=== PATIENT | male | born 1995 | race Caucasian/White ===

== ENCOUNTER 2019-04-03 00:46 | Emergency (ER) | payer SELFPAY ==
[2019-04-03 01:07] LABS: Urine Appearance Clear; Urine Bilirubin Negative (Negative); Urine Blood Negative (Negative); Urine Color Yellow; Urine Glucose Negative (Negative); Urine Ketones 1+ (Negative); Urine Nitrite Negative (Negative); Urine Protein Negative (Negative); Urine Specific Gravity 1.027 (1.010-1.030); Urine Urobilinogen Negative (Negative)
[2019-04-03 01:28] LABS: INR 1.17 (0.82-1.09)
[2019-04-03 01:40] LABS: Albumin 4.6 g/dL (3.2-5.2); Albumin/Globulin Ratio 1.5 (1-3); BUN/Creatinine Ratio 19.6 (8-20); Calcium 10.1 mg/dL (8.6-10.3); EGFR African American 125.7 (>60); EGFR Non-African American 103.9 (>60); Potassium 3.5 mmol/L (3.5-5.0); Total Bilirubin 1.7 mg/dL (0.2-1.0); Total Protein 7.6 g/dL (6.4-8.9)
[2019-04-03 01:49] LABS: ABS Basophils 0.1 10^3/ul (0-0.2); ABS Monocytes 0.7 10^3/ul (0-0.8); ABS Neutrophils 9.5 10^3/ul (1.5-7.7); Eosinophil % 0.2 %; Hematocrit 47 % (42-52); Hemoglobin 17.4 g/dL (14.0-18.0); Lymphocyte % 8.5 %; Mean Corpuscular HGB Conc 37 g/dL (31-36); Mean Corpuscular Hemoglobin 32 pg (27-31); Mean Corpuscular Volume 85 fL (80-94); Mean Platelet Volume 7.6 fL (7.4-10.4); Nucleated Red Blood Cells % 0.2; Platelet Count 244 10^3/uL (150-450); Red Blood Count 5.48 10^6 /uL (4.18-5.48); Red Cell Distribution Width 13 % (10-15); White Blood Count 11.3 10^3/uL (3.5-10.8)
--- NOTE | 2019-04-03 02:08 | ED ---
GI/ HPI - HPI Summary HPI Summary: Patient is a 23 y/o M presenting to [facility] with complaints of lower abdominal pain. Pain has been present for the past few days and is noted to wrap around to his back bilaterally. Pain is characterized as a throbbing/sharp/aching pain. He states that the pain is not worse on one particular side. Pain worsened the evening of 04/02/19 while he was at work. Patient states that before leaving work he went to the bathroom, urinated, and passed stones. He states that he wants to make sure that he passed all possible stones. Fever is denied. Patient states that he becomes nauseous when the pain is severe. On triage, pain is rated 3/10. Urination is noted to aggravate Sx. Patient denies PMHx of kidney stones. Patient has not taken any medications [employer]. He denies PMHx and daily medications. Allergy to Keflex noted. Patient is a former smoker and denies alcohol and substance usage. PSHx of right hand surgery noted. Home medications and allergies are reviewed. - History of Current Complaint Chief Complaint: EDFlankPain Time Seen by Provider: 04/03/19 01:48 Stated Complaint: FLANK PAIN PER PT Hx Obtained From: Patient Onset/Duration: Started Days Ago, Worse Since Timing: Lasting Days Severity: Mild Current Severity: Mild Pain Intensity: 3 Location of Pain: Other - lower abdomen Pain Radiates to: Back, Flank - bilateral Associated Signs and Symptoms: Positive: Nausea, Abdominal Pain - with radiation to flanks, back. Negative: Fever Aggravating Factor(s): Urination Alleviating Factor(s): Nothing - Allergy/Home Medications Allergies/Adverse Reactions: Allergies Allergy/AdvReac Type Severity Reaction Status Date / Time bee pollen Allergy Anaphylatic Verified 04/03/19 00:51 Shock cephalexin [From Keflex] Allergy Rash Verified 04/03/19 00:52 Home Medications: Home Medications Bismuth Subsalicylate [Pepto-Bismol] 2 tab PO ONCE PRN 04/03/19 [History Confirmed 04/03/19] PMH/Surg Hx/FS Hx/Imm Hx History: Denies: Hx Kidney Stones Sensory History: Denies: Hx Legally Blind, Hx Deafness Opthamlomology History: Denies: Hx Legally Blind EENT History: Denies: Hx Deafness - Surgical History Surgery Procedure, Year, and Place: right hand surgery Infectious Disease History: No Infectious Disease History: Denies: Traveled Outside the [place] in Last 30 Days - Family History Known Family History: Positive: Other - no FMHx of kidney stones reported - Social History Alcohol Use: None Substance Use Type: Reports: None Smoking Status (MU): Former Smoker Review of Systems - ROS Summary Review of Systems Summary: Home Medications Medication Instructions Recorded Confirmed Type Bismuth Subsalicylate 2 tab PO ONCE PRN 04/03/19 04/03/19 History [Pepto-Bismol] Negative: Fever Positive: Abdominal Pain - with radiation to flanks, back , Nausea - when pain is severe All Other Systems Reviewed And Are Negative: Yes Physical Exam - Summary Physical Exam Summary: General: Well-developed, Thin-appearing Male. No apparent distress. HEENT: Normocephalic, Atraumatic. Eyes: Conjuctiva normal, PERRL. Oropharynx: Clear, mucous membranes moist, (-) exudates. Neck: Soft, FROM, (-) lymphadenopathy, (-) thyromegaly, (-) JVD. Cardiovascular: Normal sinus rhythm, (-) murmur. Lungs: Clear to auscultation bilaterally (-) wheezes, (-) rales, (-) rhonchi. Abdomen: Soft, Mild suprapubic tenderness, non-distended, (-) organomegaly, normal bowel sounds. Back: (-) CVA tenderness Extremities: No edema. Skin: Warm, dry, (-) rash. Neuro: Alert and oriented x3, no focal deficits. Psychiatric: Mood normal, affect normal. Triage Information Reviewed: Yes Vital Signs On Initial Exam: Initial Vitals Temp Pulse Resp BP Pulse Ox 98.9 F 84 16 168/75 100 04/03/19 00:47 04/03/19 00:47 04/03/19 00:47 04/03/19 00:47 04/03/19 00:47 Vital Signs Reviewed: Yes Procedures - Sedation Patient Received Moderate/Deep Sedation with Procedure: No Diagnostics - Vital Signs Vital Signs Temp Pulse Resp BP Pulse Ox 04/03/19 01:00 91 137/82 99 04/03/19 00:59 89 98 04/03/19 00:47 98.9 F 84 16 168/75 100 - Laboratory Lab Results: Lab Results 04/03/19 04/03/19 04/03/19 Range/Units 01:00 01:17 01:17 WBC 11.3 H (3.5-10.8) 10^3/uL RBC 5.48 (4.18-5.48) 10^6 /uL Hgb 17.4 (14.0-18.0) g/dL Hct 47 (42-52) % MCV 85 (80-94) fL MCH 32 H (27-31) pg MCHC 37 H (31-36) g/dL RDW 13 (10-15) % Plt Count 244 (150-450) 10^3/uL MPV 7.6 (7.4-10.4) fL Neut % (Auto) 84.3 % Lymph % (Auto) 8.5 % [place] % (Auto) 6.4 % Eos % (Auto) 0.2 % Baso % (Auto) 0.6 % Absolute Neuts (auto) 9.5 H (1.5-7.7) 10^3/ul Absolute Lymphs (auto) 1.0 (1.0-4.8) 10^3/ul Absolute Monos (auto) 0.7 (0-0.8) 10^3/ul Absolute Eos (auto) 0.0 (0-0.6) 10^3/ul Absolute Basos (auto) 0.1 (0-0.2) 10^3/ul Absolute Nucleated RBC 0.0 10^3/ul Nucleated RBC % 0.2 INR (Anticoag Therapy) (0.82-1.09) Sodium 137 (135-145) mmol/L Potassium 3.5 (3.5-5.0) mmol/L Chloride 103 (101-111) mmol/L Carbon Dioxide 26 (22-32) mmol/L Anion Gap 8 (2-11) mmol/L BUN 18 (6-24) mg/dL Creatinine 0.92 (0.67-1.17) mg/dL Est GFR ( Amer) 125.7 (>60) Est GFR (Non-Af Amer) 103.9 (>60) BUN/Creatinine Ratio 19.6 (8-20) Glucose 119 H (70-100) mg/dL Lactic Acid (0.5-2.0) mmol/L Calcium 10.1 (8.6-10.3) mg/dL Total Bilirubin 1.70 H (0.2-1.0) mg/dL AST 19 (13-39) U/L ALT 14 (7-52) U/L Alkaline Phosphatase 62 (34-104) U/L Total Protein 7.6 (6.4-8.9) g/dL Albumin 4.6 (3.2-5.2) g/dL Globulin 3.0 (2-4) g/dL Albumin/Globulin Ratio 1.5 (1-3) Urine Color Yellow Urine Appearance Clear Urine pH 8.0 (5-9) Ur Specific [place] 1.027 (1.010-1.030) Urine Protein Negative (Negative) Urine Ketones 1+ A (Negative) Urine Blood Negative (Negative) Urine Nitrate Negative (Negative) Urine Bilirubin Negative (Negative) Urine Urobilinogen Negative (Negative) Ur Leukocyte Esterase Negative (Negative) Urine Glucose Negative (Negative) 04/03/19 04/03/19 Range/Units 01:17 01:17 WBC (3.5-10.8) 10^3/uL RBC (4.18-5.48) 10^6 /uL Hgb (14.0-18.0) g/dL Hct (42-52) % MCV (80-94) fL MCH (27-31) pg MCHC (31-36) g/dL RDW (10-15) % Plt Count (150-450) 10^3/uL MPV (7.4-10.4) fL Neut % (Auto) % Lymph % (Auto) % [place] % (Auto) % Eos % (Auto) % Baso % (Auto) % Absolute Neuts (auto) (1.5-7.7) 10^3/ul Absolute Lymphs (auto) (1.0-4.8) 10^3/ul Absolute Monos (auto) (0-0.8) 10^3/ul Absolute Eos (auto) (0-0.6) 10^3/ul Absolute Basos (auto) (0-0.2) 10^3/ul Absolute Nucleated RBC 10^3/ul Nucleated RBC % INR (Anticoag Therapy) 1.17 H (0.82-1.09) Sodium (135-145) mmol/L Potassium (3.5-5.0) mmol/L Chloride (101-111) mmol/L Carbon Dioxide (22-32) mmol/L Anion Gap (2-11) mmol/L BUN (6-24) mg/dL Creatinine (0.67-1.17) mg/dL Est GFR ( Amer) (>60) Est GFR (Non-Af Amer) (>60) BUN/Creatinine Ratio (8-20) Glucose (70-100) mg/dL Lactic Acid 1.0 (0.5-2.0) mmol/L Calcium (8.6-10.3) mg/dL Total Bilirubin (0.2-1.0) mg/dL AST (13-39) U/L ALT (7-52) U/L Alkaline Phosphatase (34-104) U/L Total Protein (6.4-8.9) g/dL Albumin (3.2-5.2) g/dL Globulin (2-4) g/dL Albumin/Globulin Ratio (1-3) Urine Color Urine Appearance Urine pH (5-9) Ur Specific [place] (1.010-1.030) Urine Protein (Negative) Urine Ketones (Negative) Urine Blood (Negative) Urine Nitrate (Negative) Urine Bilirubin (Negative) Urine Urobilinogen (Negative) Ur Leukocyte Esterase (Negative) Urine Glucose (Negative) Result Diagrams: 04/03/19 01:17 04/03/19 01:17 Lab Statement: Any lab studies that have been ordered have been reviewed, and results considered in the medical decision making process. - CT ABD/PEL CT CT Interpretation Completed By: Radiologist Summary of CT Findings: IMPRESSION: No acute findings. THIS REPORT WAS REVIEWED BY ED PHYSICIAN. Re-Evaluation - Re-Evaluation First Eval Re-Evaluation Time: 04:26 Comment: Results of workup were discussed with the patient, patient is discharged to home with PCP follow up. GIGU Course/Dx - Course Course Of Treatment: 23-year-old male presents from work with lower abdominal pain. He states while at work he passed a stone he saw in the toilet after he appeared never had a kidney stone before. Denies any nausea vomiting or diarrhea. No fevers or chills. Has had some mild lower central abdominal pain. Workup essentially negative. CAT scan demonstrates no acute abnormality. During ED course, patient received fluids, Zofran 4 mg IV, and Toradol 15 mg IV. Patient discharged home. Follow up with PCP. Follow-up sooner for any worsening symptoms. - Diagnoses Provider Diagnoses: Lower abdominal pain Discharge ED - Sign-Out/Discharge Documenting (check all that apply): Patient Departure - discharge - Discharge Plan Condition: Stable Disposition: HOME Patient Education Materials: Acute Abdominal Pain (ED) Forms: *Work Release Referrals: [facility] [Outside] - 3 Days Additional Instructions: PLEASE RETURN TO ED FOR ANY NEW OR WORSENING SYMPTOMS. PLEASE FOLLOW UP WITH YOUR PRIMARY CARE PHYSICIAN WITHIN THREE DAYS. - Billing Disposition and Condition Condition: STABLE Disposition: Home - Attestation Statements Document Initiated by Yoanna: Yes Documenting Scribe: CHANTE FUENTES Provider For Whom Yoanna is Documenting (Include Credential): LEO BENOIT MD Scribe Attestation: CHANTE Patel, scribed for LEO BENOIT MD on 04/03/19 at 0443. Scribe Documentation Reviewed: Yes Provider Attestation: The documentation as recorded by the CHANTE nguyen accurately reflects the service I personally performed and the decisions made by me, LEO BENOIT MD Status of Scribe Document: Viewed
[2019-04-03] MEDS: NS 0.9% 1000 ML** 1,000 ML IV ONE (02:48)
[2019-04-03] MEDS: Ondansetron INJ* 2 MG/ML VIAL IV ONE (02:49)
[2019-04-03] MEDS: Ketorolac INJ* 30 MG/ML 1 ML VIAL IV PUSH ONE (02:50)
[2019-04-03] MEDS: Iohexol 300* (CONTRAST) 10 ML SDV IV ONE (03:02)
[2019-04-03 04:37] VITALS: BP 120/90
== END 2019-04-03 04:36 | disposition home or self-care (01) ==
LOC: ED 00:46
DX: R10.30 Lower abdominal pain, unspecified (principal); Z87.442 Personal history of urinary calculi; Z88.1 Allergy status to other antibiotic agents; Z87.891 Personal history of nicotine dependence
CPT/HCPCS: 36415; 74177; 80053; 81003; 83605; 85025; 85610; 96361; 96374; 96375; 99283; J1885; J2405; Q9967